=== PATIENT | female | born 1950 | race Asian ===

== ENCOUNTER 2018-02-01 12:35 | Emergency (ER) | payer OTHER ==
[~2018-02-01] VITALS: Ht 149.9 cm; Wt 58.1 kg
[2018-02-01 12:51] VITALS: BP 171/86
--- NOTE | 2018-02-01 12:57 | NUR ---
PT TOOK 25MG MECLIZINE AT 1130 HRS AT HOME AND ONE MORE DOSE OF 25MG MECLIZINE @ 1258
--- NOTE | 2018-02-01 15:01 | NUR ---
PT AMBULATES TO BED 7
--- NOTE | 2018-02-01 15:05 | NUR ---
PATIENT PRESENTS TO ED WITH COMPLAINTS OF DIZZNESS. PATIENT STATES SHE HAS A HX OF VERTIGO. SHE REPORTS SHE TAKES MECLIZINE BUT IT HAS NOT HELPED TODAY. UPON INSPECTION PATIENT APPEARS TO HAVE WAX PLUG IN LEFT EAR. PATIENT STATES SHE FEELS LIKE SHE IS UNDER WATER. DENIES N/V/D; SKIN IS PINK/WARM/DRY; AAOX4 WITH EVEN AND STEADY GAIT; LUNGS CLEAR BL; HR EVEN AND REGULAR; PT DENIES ANY FEVER, CP, SOB, OR COUGH AT THIS TIME; PATIENT STATES PAIN OF 8/10 AT THIS TIME; VSS; PATIENT POSITIONED FOR COMFORT; HOB ELEVATED; BEDRAILS UP X1; BED DOWN. ER MD MADE AWARE OF PT STATUS.
[2018-02-01 16:22] LABS: BASOPHILS % (AUTO) 0.6 % (0.0-2.0); EOSINOPHILS # (AUTO) 0.1 K/uL (0-0.4); EOSINOPHILS % (AUTO) 1.7 % (0.0-4.0); HEMOGLOBIN 13.4 g/dL (12.0-16.0); LYMPHOCYTES # (AUTO) 1.9 K/uL (2.5-16.5); LYMPHOCYTES % (AUTO) 27.6 % (20.5-51.1); MEAN CORPUSCULAR HEMOGLOBIN 31 pg (27-31); MEAN CORPUSCULAR HGB CONC 32 g/dL (33-37); MEAN CORPUSCULAR VOLUME 96.7 fL (80-94); MONOCYTES # (AUTO) 0.4 K/uL (0.8-1.0); MONOCYTES % (AUTO) 5.4 % (1.7-9.3); NEUTROPHILS # (AUTO) 4.5 K/uL (1.8-7.7); NEUTROPHILS % (AUTO) 64.7 % (42.2-75.2); PLATELET COUNT (AUTO) 229 K/uL (140-450); RED BLOOD CELL COUNT(AUTO) 4.34 MIL/uL (4.20-5.40); RED CELL DISTRIBUTION WIDTH 13.6 % (11.6-13.7)
[2018-02-01 16:26] LABS: ANION GAP 10.1 (8-16); CARBON DIOXIDE 30.9 mmol/L (21-32)
[2018-02-01 16:32] LABS: TOTAL BILIRUBIN 0.4 mg/dL (0.0-1.0)
[2018-02-01 17:35] VITALS: BP 171/86
[2018-02-01 17:49] LABS: BILIRUBIN,URINE NEGATIVE (NEGATIVE); BLOOD, URINE NEGATIVE (NEGATIVE); LEUKOCYTE ESTERASE ,URINE NEGATIVE (NEGATIVE); NITRITE, URINE NEGATIVE (NEGATIVE); UGLUCOSE TRACE (NEGATIVE)
[2018-02-01 17:53] LABS: APPEARANCE,URINE CLEAR (CLEAR); COLOR,URINE STRAW (YELLOW)
== END 2018-02-01 17:35 | disposition home or self-care (01) ==
LOC: MED 12:35
DX: H81.10 Benign paroxysmal vertigo, unspecified ear (principal); I10 Essential (primary) hypertension
CPT/HCPCS: 36415; 80053; 81003; 84484; 85025; 93005; 99285